=== PATIENT | female | born 1975 | race American Indian/Alaskan Native ===

== ENCOUNTER 2019-06-30 13:51 | Emergency (ER) | payer BC, MEDICAID ==
[2019-06-30 14:01] VITALS: BP 176/96
[2019-06-30] MEDS ORDERED: DECADRON IM ONE (15:10)
--- NOTE | 2019-06-30 15:11 | Emergency Department Report ---
ED Back Pain/Injury HPI - General Chief Complaint: Shoulder Injury Stated Complaint: SHARP/R LEG/SHOULDER PAIN Time Seen by Provider: 06/30/19 15:10 Source: patient Limitations: No Limitations - History of Present Illness Initial Comments: 43 YO AA FEMALE COMES TO ER WITH R SHOULDER AND NECK PAIN SINCE WED. NO FALL OR TRAUMA. PAIN WORSE WITH MOVEMENT. OTC MEDS HELPING. NO CP. NO SOB. NO FEVER/CHILLS. PMH NEUROPATHY HTN - Related Data Previous Rx's Medication Instructions Recorded Last Taken Type methOCARBAMOL [Robaxin] 500 mg PO BID #30 tab 07/26/14 Unknown Rx Cyclobenzaprine [Flexeril] 10 mg PO TID PRN #10 tablet 06/30/19 Unknown Rx Ibuprofen [Motrin] 800 mg PO Q8HR PRN #20 tablet 06/30/19 Unknown Rx predniSONE [Deltasone] 20 mg PO DAILY #5 tablet 06/30/19 Unknown Rx Allergies Allergy/AdvReac Type Severity Reaction Status Date / Time No Known Allergies Allergy Unverified 04/06/14 23:48 ED Review of Systems ROS: Stated complaint: SHARP/R LEG/SHOULDER PAIN Other details as noted in HPI Comment: All other systems reviewed and negative ED Past Medical Hx - Past Medical History Medical history: hypertension NEUROPATHY ED Back Pain Physical Exam - Exam General: Vital signs noted. No distress. Alert and acting appropriately. S1S2 LUNGS CTA NO JVD NO EDEMA NO SPINE TENDERNESS NO FOCAL NEURO DEF Back/Abdomen: No Abdominal Tenderness, No Perithoracic Tenderness Neuro: Yes Normal Sensation, Yes Normal DTR's, Yes Normal Gait, No Motor Weakness ED Course Vital Signs 06/30/19 13:58 Temperature 98 F Pulse Rate 88 Respiratory 16 Rate Blood Pressure 176/96 [Left] O2 Sat by Pulse 97 Oximetry Ed Back Pain Tests - Tests Tests: Normal X Rays ED Medical Decision Making - Radiology Data Radiology results: report reviewed, image reviewed - Medical Decision Making NO FALL OR TRAUMA PAIN WORSE W MOVEMENT SHARP IN NATURE WITH THE MOVEMENT NO CP/SOB/FEVER OR CHILLS VSS PT ON BP MEDS BUT NON ADHERENT W DAILY REGIMEN NEURO INTACT WITHOUT DEFICIT NO SPINE TENDERNESS AMBULATORY AND NONTOXIC ON EXAM IN ACC Vital Signs 06/30/19 13:58 Temperature 98 F Pulse Rate 88 Respiratory 16 Rate Blood Pressure 176/96 [Left] O2 Sat by Pulse 97 Oximetry PT EDUCATED ON NEED TO TAKE HER MEDS DAILY MEDICATED IN ER FOR PAIN XRAY NORMAL DC HOME WITH DC PLAN OF CARE INCLUDING PCP/ORTHO FOLLOW UP - Differential Diagnosis SOFT TISSUE INJURY Critical care attestation.: If time is entered above; I have spent that time in minutes in the direct care of this critically ill patient, excluding procedure time. ED Disposition Clinical Impression: Musculoskeletal pain Disposition: DC-01 TO HOME OR SELFCARE Is pt being admited?: No Does the pt Need Aspirin: No Condition: Stable Instructions: Muscle Spasm (ED) Additional Instructions: TAKE YOU DAILY BP MEDS MEDS ORDERED TODAY WARM COMPRESSES TO NECK AND SHOULDER XRAY NORMAL IF PAIN PERSISTS FOLLOW UP WITH PCP OR ORTHO MD REFERRALS BELOW Referrals: PRIMARY CAREMD [Primary Care Provider] - 3-5 Days TARAN PANDEY MD [Staff Physician] - 3-5 Days SILVANA NELSON MD [Staff Physician] - 3-5 Days Time of Disposition: 16:28
--- NOTE | 2019-06-30 16:22 | XRay Report ---
Right shoulder, 3 views INDICATION: Right shoulder pain. No history of injury.. COMPARISON: None. IMPRESSION: No acute osseous or soft tissue abnormality. No significant DJD. Signer Name: Isaías Lambert Jr, MD Signed: 06/30/2019 4:18 PM Workstation Name: [id number]
== END 2019-06-30 16:51 | disposition home or self-care (01) ==
LOC: ED 13:51
DX: M54.2 Cervicalgia (principal); M25.511 Pain in right shoulder
CPT/HCPCS: 73030; 96372; 99283; J1100